=== PATIENT | female | born 1960 | race Caucasian/White ===

== ENCOUNTER → 2016-07-11 | Outpatient (CLI) | payer OTHER ==
[~2016-07-11] MED LIST: ACYCLOVIR 800800 MG PO; ALBUTEROL INH INH; ALLEGRA ALLERG180 MG PO; ALLEGRA ALLERGY60 MG PO; AMBEREN; AMBIEN 10 MG TA10 MG PO; AMITRIPTYLINE H10 M3 PO; APAP500 PO; ARTIFICIAL TEA1 EACH GTT; BACTRIM DS TAB1 EACH PO; BENTYL 20 MG TA20 M1 PO; BENTYL10 MG PO; CALCIUM 500 +1 EAC5 PO; CIPRO500 MG PO; CLONAZEPAM PO; COLACE100 MG PO; CYCLOBENZAPRINE5 MG PO; CYMBALTA20 MG PO; CYMBALTA60 MG PO; DIFLUCAN200 MG PO; DIPHENHIST25 M2 PO; ESTRACE0.5 MG PO; FLAGYL500 MG PO; FLEXERIL PO; FOLIC ACID1 MG PO; HYDROCHLOROTH12.5 M1 PO; HYDROCHLOROTHIA25 M2 PO; HYDROCODON-ACE1 EAC5 PO; HYDROCODONE-AP1 EAC6 PO; IRON325 PO; KEFLEX500 MG PO; KLOR-CON 1010 MEQ PO; LEVOTHYROXINE 0.1 MG PO; LORTAB 5 MG/5001 TA1 PO; LYRICA 50 MG50 MG PO; MEDROLDOSEPACK PO; METAMUCIL PAC1 UDPKT PO; METFORMIN HCL500 MG PO; METHOTREXATE 22.5 MG PO; MULTI VITAMIN1 EACH PO; NORCO 5-325 TA1 EACH PO; NORFLEX100 MG PO; NORVASC5 MG PO; OMEGA 3-6-9 CO1 EACH PO; OMEPRAZOLE; ORACEA40 MG; PREDNISONE 10 M10 MG PO; PREDNISONE50 MG PO; PREMPRO 0.625-1 EACH PO; PRILOSEC 20 MG20 MG PO; PRILOSEC20 MG PO; PROBIOTIC1 EAC1 PO; PROVERA2.5 MG PO; SALINE360 M1 GTT; SYNTHROID100 MCG PO; SYNTHROID125 MCG PO; TEGRETOL XR100 MG PO; TRAMADOL 50 MG50 MG PO; TRIAMCINOLONE A80 G2 TOP; ULTRAM 50MG TAB50 MG PO; VITAMIN B-12500 MCG PO; VITAMIN D1000 UNI1 PO; VITAMIN D2000 UNIT PO; WELLBUTRIN SR150 MG PO; XANAX 0.25 MG0.25 MG PO; XANAX 0.5 MG0.5 M1 PO; ZANTAC 150MG T150 M1 PO; ZANTAC 150MG T150 MG PO; ZOFRAN ODT4 MG PO; ZYRTEC10 MG PO
[2016-07-11 15:42] LABS: ABSOLUTE NEUTROPHILS 2.7 thou/uL (1.4-8.2); BASOPHILS 1.3 % (0.0-2.0); EOSINOPHILS 0.1 % (0.0-3.0); HEMATOCRIT 41.6 % (37.0-47.0); HEMOGLOBIN 13.7 gm/dL (12.0-15.0); LYMPHOCYTES 35.8 % (24.0-44.0); MONOCYTES 8.6 % (1.0-8.0); PLATELET COUNT 198 thou/uL (150-400); POLYS 54.2 % (36.0-66.0); RBC 4.72 mil/uL (4.20-5.00); RDW 14.8 % (10.5-14.5); WBC 5.1 thou/uL (4.0-11.0)
[2016-07-11 15:44] LABS: MANUAL DIFF NO
[2016-07-11 16:02] LABS: ALBUMIN 3.4 g/dL (3.4-5.0); CALCIUM 8.7 mg/dL (8.5-10.1); CREATININE 0.7 mg/dL (0.6-1.3); TOTAL BILIRUBIN 0.3 mg/dL (<0.1-1.0)
== END ==
LOC: LAB 14:47
DX: M35.3 Polymyalgia rheumatica (principal); Z79.52 Long term (current) use of systemic steroids; Z79.899 Other long term (current) drug therapy

== ENCOUNTER 2016-12-22 01:27 | Emergency (ER) | payer OTHER ==
[~2016-12-22] VITALS: Ht 167.6 cm; Wt 78.9 kg
== END 2016-12-22 02:23 | disposition home or self-care (01) ==
LOC: ER 01:27
DX: S00.411A Abrasion of right ear, initial encounter (principal); K21.9 Gastro-esophageal reflux disease without esophagitis; E03.9 Hypothyroidism, unspecified; F32.9 Major depressive disorder, single episode, unspecified; Z98.890 Other specified postprocedural states; Z87.891 Personal history of nicotine dependence; Z88.1 Allergy status to other antibiotic agents; Z88.5 Allergy status to narcotic agent; Z88.0 Allergy status to penicillin; Z88.8 Allergy status to other drugs, medicaments and biological substances; W22.8XXA Striking against or struck by other objects, initial encounter; Y93.89 Activity, other specified; Y92.89 Other specified places as the place of occurrence of the external cause; Y99.8 Other external cause status

== ENCOUNTER → 2017-01-28 | Outpatient (CLI) | payer OTHER ==
[2017-01-28 17:23] LABS: HEMATOCRIT 41.1 % (37.0-47.0); HEMOGLOBIN 13.7 gm/dL (12.0-15.0); MCH 29.5 pg (26.0-34.0); MCHC 33.2 g/dL (28.0-37.0); MCV 88.9 fL (80.0-100.0); RBC 4.63 mil/uL (4.20-5.00); RDW 14.3 % (10.5-14.5); WBC 9.7 thou/uL (4.0-11.0)
[2017-01-28 17:42] LABS: ALBUMIN 3.5 g/dL (3.4-5.0); CREATININE 0.7 mg/dL (0.6-1.0); POTASSIUM 3.9 mmol/L (3.5-5.1); TOTAL BILIRUBIN 0.4 mg/dL (<0.1-1.0); TOTAL PROTEIN 7.2 g/dL (6.4-8.2)
== END ==
LOC: LABMALL 16:30
PROVIDERS: Internal Medicine
DX: M85.30 Osteitis condensans, unspecified site (principal); Z79.52 Long term (current) use of systemic steroids

== ENCOUNTER 2017-02-06 09:08 | Emergency (ER) | payer OTHER ==
[~2017-02-06] VITALS: Ht 167.6 cm; Wt 77.1 kg
[2017-02-06] MEDS ORDERED: ESTROGEN PATCH (09:34)
[2017-02-06] MEDS ORDERED: TESTOSTERONE (09:34)
== END 2017-02-06 09:31 | disposition home or self-care (01) ==
LOC: ER 09:08
DX: S61.012A Laceration without foreign body of left thumb without damage to nail, initial encounter (principal); F32.9 Major depressive disorder, single episode, unspecified; N80.9 Endometriosis, unspecified; E03.9 Hypothyroidism, unspecified; K21.9 Gastro-esophageal reflux disease without esophagitis; M35.3 Polymyalgia rheumatica; Z90.89 Acquired absence of other organs; Z98.890 Other specified postprocedural states; Z87.440 Personal history of urinary (tract) infections; Z88.6 Allergy status to analgesic agent; Z88.5 Allergy status to narcotic agent; Z88.1 Allergy status to other antibiotic agents; Z88.2 Allergy status to sulfonamides; Z87.891 Personal history of nicotine dependence; W27.8XXA Contact with other nonpowered hand tool, initial encounter; Y93.89 Activity, other specified; Y92.89 Other specified places as the place of occurrence of the external cause; Y99.8 Other external cause status